=== PATIENT | female | born 1985 | race Caucasian/White ===

== ENCOUNTER 2020-03-18 06:00 | Inpatient (IN) | payer BC ==
[2020-03-18] MEDS ORDERED: METHYLERGONOVINE 0.2 MG/ML 1 ML AMP IM PRN (06:30)
[2020-03-18] MEDS ORDERED: TERBUTALINE 1 MG/ML VIAL SQ PRN (06:30)
[2020-03-18] MEDS ORDERED: OXYTOCIN 10 UNIT/ML 1 ML VIAL IM PRN (06:30)
[2020-03-18] MEDS ORDERED: LIDOCAINE 0.5% (PF) 5 MG/ML (50 ML SDV) SQ PRN (06:30)
[2020-03-18] MEDS ORDERED: PENICILLIN G POTASSIUM 5,000,000 UNIT in DEXTROSE 5% IN WATER 100 ML IVPB STA ×2 (06:30)
[2020-03-18] MEDS ORDERED: CARBOPROST TROMETHAMINE 250 MCG/ML 1 ML AMP IM PRN (06:30)
[2020-03-18] MEDS ORDERED: AMPICILLIN 2,000 MG in SODIUM CHLORIDE 0.9% 100 ML IVPB STA (06:39)
[2020-03-18] MEDS: LACTATED RINGERS 1,000 ML IV SCH ×2 (06:41→14:10)
[2020-03-18] MEDS: OXYTOCIN 30 UNITS/500 ML NS 30 UNIT in SALINE 1 500ML.BAG IV SCH ×2 (06:42→18:26)
[2020-03-18 06:48] LABS: Basophils % (A) 0 %; Eosinophils # (A) 0.1 k/uL (0-0.7); Eosinophils % (A) 0 %; HCT 33.6 % (34.0-46.0); HGB 11.2 gm/dL (11.4-16.0); Lymphocytes # (A) 2.2 k/uL (1.0-4.8); Lymphocytes % (A) 17 %; MCH 27.7 pg (25.0-35.0); MCHC 33.4 g/dL (31.0-37.0); MCV 82.9 fL (80.0-100.0); Mean Platelet Volume 7.7; Monocytes # (A) 0.7 k/uL (0-1.0); Monocytes % (A) 6 %; Neutrophils # (A) 9.4 k/uL (1.3-7.7); Neutrophils % (A) 75 %; Platelet Count 315 k/uL (150-450); RBC 4.05 m/uL (3.80-5.40); RDW 14.4 % (11.5-15.5); WBC 12.6 k/uL (3.8-10.6)
[2020-03-18 09:30] LABS: Basophils % (A) 0 %; Eosinophils % (A) 0 %; HCT 34.7 % (34.0-46.0); HGB 11.4 gm/dL (11.4-16.0); Lymphocytes # (A) 2.2 k/uL (1.0-4.8); Lymphocytes % (A) 17 %; MCH 27.4 pg (25.0-35.0); MCV 83.1 fL (80.0-100.0); Mean Platelet Volume 7.5; Monocytes # (A) 0.7 k/uL (0-1.0); Monocytes % (A) 6 %; Neutrophils # (A) 9.5 k/uL (1.3-7.7); Neutrophils % (A) 75 %; Platelet Count 325 k/uL (150-450); RBC 4.17 m/uL (3.80-5.40); RDW 14.4 % (11.5-15.5); WBC 12.6 k/uL (3.8-10.6)
[2020-03-18 09:38] LABS: ALT 7 U/L (4-34); AST 14 U/L (14-36); African American GFR (CKD) >90 (>60 ml/min/1.73 sqM); Blood Urea Nitrogen 7 mg/dL (7-17); LDH 362 U/L (313-618); Non-African American GFR(CKD) >90 (>60 ml/min/1.73 sqM); Uric Acid 3.4 mg/dL (3.7-7.4)
[2020-03-18 09:47] LABS: Appearance,Urine Cloudy (Clear); Bilirubin,Urine Negative (Negative); Blood,Urine Small (Negative); Calcium Oxalate Crystals,Urine Few /hpf; Color,Urine Yellow; Glucose,Urine (UA) Negative (Negative); Hyaline Casts,Urine 1 /lpf (0-2); Ketones,Urine 1+ (Negative); Leukocyte Esterase,Urine Trace (Negative); Mucus,Urine Many /hpf; Nitrite,Urine Negative (Negative); PH, Urine 6.5 (5.0-8.0); Protein,Urine 1+ (Negative); RBC,Urine 10 /hpf (0-5); Specific Gravity,Urine 1.033 (1.001-1.035); Squamous Epithelial Cell,Urine 8 /hpf (0-4); WBC,Urine 4 /hpf (0-5)
--- NOTE | 2020-03-18 10:10 | P.HPOB ---
History of Present Illness H&P Date: 03/18/20 Chief Complaint: IUP at 39 and one sevenths weeks this is a 35-year-old at 39 1/7 weeks, edc 03/24 based on first trimester ultrasound that presents to labor and delivery for elective induction of labor. Patient has been receiving routine care which has been essentially uncomplicated. Patient is a smoker and is urged to quit. Patient notes good movement denies contractions or loss of fluid this morning. On blood work she has a blood type of A+, rubella status immune, RPR nonreactive, B surface antigen negative, HIV negative, she did pass her one-hour gestational diabetes screen, group beta strep culture was noted to be positive on 02/25. patient did receive the flu shot and her T Dap vaccine during . Review of Systems Constitutional: Denies chills, Denies fatigue, Denies fever Ears, nose, mouth and throat: Denies headache Cardiovascular: Reports leg edema Respiratory: Denies dyspnea Gastrointestinal: Denies constipation, Denies diarrhea, Denies nausea, Denies vomiting Genitourinary: Reports Past Medical History Past Medical History: No Reported History History of Any Multi-Drug Resistant Organisms: None Reported Additional Past Surgical History / Comment(s): ectopic 2001, mass R breast non malignant 2011, R elbow surgery July 2019 Past Anesthesia/Blood Transfusion Reactions: No Reported Reaction Past Psychological History: Depression Smoking Status: Former smoker Past Alcohol Use History: None Reported Past Drug Use History: None Reported - Past Family History Mother Family Medical History: COPD, Hyperlipidemia, Hypertension, Liver Disease, Thyroid Disorder Additional Family Medical History / Comment(s): hepatitis C, thyroid CA, Stro kes, heart attack, hip replacements x 16 Medications and Allergies Home Medications Medication Instructions Recorded Confirmed Type Calcium Carbonate [Tums] 500 mg PO TID PRN 03/18/20 03/18/20 History Famotidine [Pepcid] 40 mg PO DAILY PRN 03/18/20 03/18/20 History valACYclovir HCL 1,000 mg PO DAILY 03/18/20 03/18/20 History Allergies Allergy/AdvReac Type Severity Reaction Status Date / Time No Known Allergies Allergy Verified 03/18/20 06:26 Exam Osteopathic Statement: *. No significant issues noted on an osteopathic structural exam other than those noted in the History and Physical/Consult. Vital Signs Temp Pulse Resp BP Pulse Ox 03/18/20 06:47 98.3 F 92 16 138/85 99 Intake and Output 03/17/20 03/18/20 03/18/20 22:59 06:59 14:59 Other: Weight 98.883 kg targeted physical exam is performed and state in general this a well-nourished well-developed female in no acute distress, breathing is noted to be nonlabored, heart has a regular rate and rhythm, abdomen is gravid and appropriate for gestational age, on cervical exam she is 2/50/-2 station amniotomy is performed and clear fluid was obtained. heart tones are be category 1 she is janice irregularly. Results Result Diagrams: 03/18/20 08:40 03/18/20 08:40 Abnormal Lab Results - Last 24 Hours (Table) 03/18/20 03/18/20 03/18/20 Range/Units 06:30 08:25 08:40 WBC 12.6 H 12.6 H (3.8-10.6) k/uL Hgb 11.2 L (11.4-16.0) gm/dL Hct 33.6 L (34.0-46.0) % Neutrophils # 9.4 H 9.5 H (1.3-7.7) k/uL Uric Acid (3.7-7.4) mg/dL Urine Appearance Cloudy H (Clear) Urine Protein 1+ H (Negative) Urine Ketones 1+ H (Negative) Urine Blood Small H (Negative) Ur Leukocyte Esterase Trace H (Negative) Urine RBC 10 H (0-5) /hpf Ur Squamous Epith Cells 8 H (0-4) /hpf Calcium Oxalate Crystal Few H (None) /hpf Urine Mucus Many H (None) /hpf 03/18/20 Range/Units 08:40 WBC (3.8-10.6) k/uL Hgb (11.4-16.0) gm/dL Hct (34.0-46.0) % Neutrophils # (1.3-7.7) k/uL Uric Acid 3.4 L (3.7-7.4) mg/dL Urine Appearance (Clear) Urine Protein (Negative) Urine Ketones (Negative) Urine Blood (Negative) Ur Leukocyte Esterase (Negative) Urine RBC (0-5) /hpf Ur Squamous Epith Cells (0-4) /hpf Calcium Oxalate Crystal (None) /hpf Urine Mucus (None) /hpf Assessment and Plan (1) Term Current Visit: Yes Status: Acute Code(s): Z34.90 - ENCNTR FOR SUPRVSN OF NORMAL , UNSP, UNSP TRIMESTER SNOMED Code(s): 70803366 (2) Positive GBS test Current Visit: Yes Status: Acute Code(s): B95.1 - STREPTOCOCCUS, GROUP B, CAUSING DISEASES CLASSD ELSR SNOMED Code(s): 631273065 (3) HSV (herpes simplex virus) anogenital infection Current Visit: Yes Status: Acute Code(s): A60.9 - ANOGENITAL HERPESVIRAL I NFECTION, UNSPECIFIED SNOMED Code(s): 448842310 (4) AMA (advanced maternal age) multigravida 35+ Current Visit: Yes Status: Acute Code(s): O09.529 - SUPERVISION OF ELDERLY MULTIGRAVIDA, UNSPECIFIED TRIMESTER SNOMED Code(s): 381905958 Plan: this 35-year-old 0-1 at 39 and one sevenths weeks is admitted to labor and delivery for scheduled induction of labor. Patient is started on Pitocin induction of labor per hospital protocol. Options for analgesia are discussed including Stadol and epidural. Patient declines. We'll monitor closely and anticipate spontaneous vaginal delivery.
[2020-03-18 10:30] LABS: Creatinine,Urine Random 242.7 mg/dL; Protein/Creatinine Ratio,Urine 0.144
[2020-03-18] MEDS ORDERED: PENICILLIN G POTASSIUM 2,500,000 UNIT in DEXTROSE 5% IN WATER 100 ML IVPB SCH ×2 (10:33)
[2020-03-18] MEDS: AMPICILLIN 1,000 MG in SODIUM CHLORIDE 0.9% 50 ML IVPB SCH ×3 (11:30→20:51)
[2020-03-18] MEDS ORDERED: BUTORPHANOL 1 MG/ML 1 ML VIAL IV PRN (14:00)
[2020-03-18] MEDS ORDERED: fentaNYL (PF) 50 MCG/ML 5 ML AMP ONE (14:20)
[2020-03-18] MEDS ORDERED: ROPIVACAINE 5MG/ML 20ML VIAL ONE (14:20)
[2020-03-18] MEDS ORDERED: SODIUM CHLORIDE 0.9% 100 ML BAG ONE (14:20)
[2020-03-18] MEDS ORDERED: ZOLPIDEM 5 MG TAB PO PRN (16:52)
[2020-03-18] MEDS ORDERED: diphenhydrAMINE 50 MG/ML 1 ML VIAL IVP PRN ×2 (16:52)
[2020-03-18] MEDS ORDERED: LANOLIN CREAM 5 GM TUBE TOPICAL PRN (16:52)
[2020-03-18] MEDS ORDERED: ACETAMINOPHEN TAB 325 MG TAB PO PRN (16:52)
[2020-03-18] MEDS ORDERED: diphenhydrAMINE 50 MG CAP PO PRN (16:52)
[2020-03-18] MEDS ORDERED: diphenhydrAMINE 25 MG CAP PO PRN (16:52)
[2020-03-18] MEDS ORDERED: BENZOCAINE/MENTHOL SPRAY 1 GM/SPRAY AEROSOL TOPICAL PRN (16:52)
[2020-03-18] MEDS ORDERED: HYDROCORTISONE 2.5% RECTAL CREAM 30 GM TUBE RECTAL PRN (16:52)
[2020-03-18] MEDS ORDERED: SIMETHICONE 80 MG CHEWABLE PO PRN (16:52)
[2020-03-18] MEDS ORDERED: HYDROcodone/APAP 5-325MG 1 EACH TAB PO PRN (16:52)
[2020-03-18] MEDS ORDERED: OXYTOCIN 30 UNITS/500 ML NS 30 UNIT in SALINE 1 500ML.BAG IV SCH (17:00)
--- NOTE | 2020-03-18 17:02 | P.PROBDLV ---
Vaginal Delivery Note - . Vaginal Delivery Note: This is a 35-year-old that presented to labor and delivery at 39 1/7 weeks for elective induction of labor. Patient was receiving routine care which has been essentially uncomplicated. Patient was admitted to labor and delivery and Pitocin induction of labor was begun per hospital protocol. Amniotomy was performed and clear fluid was obtained. Patient pressed to labor became uncomfortable and requested epidural placement. Epidural was placed by the anesthesia Department without difficulty. Unfortunately she only received relief of her discomfort on one side. Patient did progress to complete and began pushing and had a normal spontaneous vaginal delivery of a viable female infant at 1634, loose nuchal was delivered through. After two-minute delayed the umbilical cord was doubly clamped and cut and the infant was handed off to the maternal abdomen. The placenta was then delivered spontaneously intact with a three-vessel cord being noted. After delivery of the placenta the uterus was noted to be firm and below the umbilicus. A red rubber catheter was then used to drain the bladder of 100 mL of clear yellow urine. Inspection the patient's vaginal vault a periurethral laceration was noted and this was repaired with a [id number] suture of 4-0 chromic. <Viable female infant delivered at 1634, weight of 6 lbs. 15 oz. and Apgars of 9 and 9 at one and 5 minutes respectively>.
[2020-03-18] MEDS: SENNOSIDES-DOCUSATE SODIUM 1 EACH TAB PO SCH (20:50)
[2020-03-19] MEDS: IBUPROFEN 600 MG TAB PO PRN ×2 (05:14→15:42)
--- NOTE | 2020-03-19 08:06 | P.DS ---
Providers Date of admission: 03/18/20 06:00 Expected date of discharge: 03/19/20 Attending physician: Dulce Licea Primary care physician: Stated None - Discharge Diagnosis(es) (1) Term Current Visit: Yes Status: Acute (2) Positive GBS test Current Visit: Yes Status: Acute (3) HSV (herpes simplex virus) anogenital infection Current Visit: Yes Status: Acute (4) AMA (advanced maternal age) multigravida 35+ Current Visit: Yes Status: Acute (5) Status post normal vaginal delivery Current Visit: Yes Status: Acute Hospital Course: This is a 35-year-old 4 now para 2021 that presented to labor and delivery yesterday for elective induction of labor at 39 and one sevenths weeks. Patient had been receiving routine care which had been essentially uncomplicated. Patient was admitted to labor and delivery and Pitocin induction of labor was begun. Patient underwent amniotomy and clear fluid was obtained. Patient progressed through labor eventually becoming uncomfortable and requesting epidural placement. Epidural was placed without difficulty by the anesthesia department, unfortunately she was only able to receive relief of her discomfort on one side. Patient progressed to complete began pushing and had a normal spontaneous vaginal delivery of a viable female infant at 1634, weight of 6 lbs. 15 oz. and Apgars of 9 and 9 at one and 5 minutes respectively. Patient did sustain a periurethral laceration which was repaired with 4-0 chromic in a [id number] fashion. Patient's course is been uneventful. On this day #1 she is ambulatory and voiding without difficulty. She is tolerating a regular diet without nausea or vomiting. She states she would like discharge home at 24 hours if possible. Patient Condition at Discharge: Good Plan - Discharge Summary New Discharge Prescriptions: No Action valACYclovir HCL 1,000 mg PO DAILY Famotidine [Pepcid] 40 mg PO DAILY PRN PRN Reason: Heartburn Calcium Carbonate [Tums] 500 mg PO TID PRN PRN Reason: Heartburn Discharge Medication List Calcium Carbonate [Tums] 500 mg PO TID PRN 03/18/20 [History] Famotidine [Pepcid] 40 mg PO DAILY PRN 03/18/20 [History] valACYclovir HCL 1,000 mg PO DAILY 03/18/20 [History] Follow up Appointment(s)/Referral(s): Dulce Licea DO [Doctor of Osteopathic Medicine] - 4 Weeks Patient Instructions/Handouts: Vaginal Delivery (DC), Vaginal Delivery (GEN) Discharge Disposition: HOME SELF-CARE
[2020-03-19] MEDS: SENNOSIDES-DOCUSATE SODIUM 1 EACH TAB PO SCH (15:42)
[2020-03-19 16:12] VITALS: BP 149/81; PULSE 88; RESP 16; TEMP 98.2
== END 2020-03-19 17:21 | disposition home or self-care (01) | DRG 806 ==
LOC: 4FBP 06:00 → MERGE 06:00
PROVIDERS: ADMIT Obstetrics & Gynecology Obstetrics; ATTEND Obstetrics & Gynecology Obstetrics
PROC: 10907ZC Drainage of Amniotic Fluid, Therapeutic from Products of Conception, Via Natural or Artificial Opening (ICD-10-PCS; principal; 2020-03-18)
PROC: 3E0R3BZ Introduction of Anesthetic Agent into Spinal Canal, Percutaneous Approach (ICD-10-PCS; principal; 2020-03-18)
PROC: 0UQMXZZ Repair Vulva, External Approach (ICD-10-PCS; principal; 2020-03-18)
PROC: 00HU33Z Insertion of Infusion Device into Spinal Canal, Percutaneous Approach (ICD-10-PCS; principal; 2020-03-18)
PROC: 10E0XZZ Delivery of Products of Conception, External Approach (ICD-10-PCS; principal; 2020-03-18)
PROC: 3E033VJ Introduction of Other Hormone into Peripheral Vein, Percutaneous Approach (ICD-10-PCS; principal; 2020-03-18)
DX: O99.824 Streptococcus B carrier state complicating childbirth (principal); O98.32 Other infections with a predominantly sexual mode of transmission complicating childbirth; Z37.0 Single live birth; O71.82 Other specified trauma to perineum and vulva; A60.9 Anogenital herpesviral infection, unspecified; O99.334 Smoking (tobacco) complicating childbirth; O99.62 Diseases of the digestive system complicating childbirth; K21.9 Gastro-esophageal reflux disease without esophagitis; F17.200 Nicotine dependence, unspecified, uncomplicated; Z71.6 Tobacco abuse counseling; Z3A.39 39 weeks gestation of pregnancy; Z79.899 Other long term (current) drug therapy; Z87.39 Personal history of other diseases of the musculoskeletal system and connective tissue; Z86.59 Personal history of other mental and behavioral disorders; Z87.2 Personal history of diseases of the skin and subcutaneous tissue; Z98.890 Other specified postprocedural states; Z82.5 Family history of asthma and other chronic lower respiratory diseases; Z83.49 Family history of other endocrine, nutritional and metabolic diseases; Z82.49 Family history of ischemic heart disease and other diseases of the circulatory system; Z83.79 Family history of other diseases of the digestive system; Z82.3 Family history of stroke; Z80.8 Family history of malignant neoplasm of other organs or systems
CPT/HCPCS: 81001; 82565; 82570; 83615; 84156; 84450; 84460; 84520; 84550; 85025; 86850; 86900; 86901

== ENCOUNTER 2020-03-26 14:12 | Inpatient (IN) | payer BC ==
--- NOTE | 2020-03-26 14:37 | ED ---
General Adult HPI - General Chief complaint: Recheck/Abnormal Lab/Rx Stated complaint: Lab recheck post baby- Sent by Dr. Licea Time Seen by Provider: 03/26/20 14:21 Source: patient, RN notes reviewed Mode of arrival: ambulatory Limitations: no limitations - History of Present Illness Initial comments: Patient is a pleasant 35-year-old female presenting to the emergency department after being evaluated by her SPARE FIXER today. Patient states she has been having some headaches for last 4 days as well as some abdominal discomfort. Patient doesn't follow this short of breath when she lays flat. Patient also noticed some swelling of her hands and feet. Patient states she did have some mild amount of protein and borderline blood pressure went in the hospital. Patient did deliver just 9 days ago. No fevers. No visual changes. - Related Data Home Medications Medication Instructions Recorded Confirmed Calcium Carbonate [Tums] 500 mg PO TID PRN 03/18/20 03/18/20 Famotidine [Pepcid] 40 mg PO DAILY PRN 03/18/20 03/18/20 valACYclovir HCL 1,000 mg PO DAILY 03/18/20 03/18/20 Allergies Allergy/AdvReac Type Severity Reaction Status Date / Time No Known Allergies Allergy Verified 03/18/20 06:26 Review of Systems ROS Statement: Those systems with pertinent positive or pertinent negative responses have been documented in the HPI. ROS Other: All systems not noted in ROS Statement are negative. Constitutional: Denies: fever Eyes: Denies: eye pain, vision change ENT: Denies: ear pain Respiratory: Reports: as per HPI. Denies: cough Cardiovascular: Denies: chest pain Endocrine: Denies: fatigue Gastrointestinal: Reports: abdominal pain Genitourinary: Denies: dysuria Musculoskeletal: Denies: back pain Skin: Denies: rash Neurological: Reports: headache. Denies: weakness, confusion Past Medical History Past Medical History: No Reported History History of Any Multi-Drug Resistant Organisms: None Reported Additional Past Surgical History / Comment(s): ectopic 2001, mass R breast non malignant 2011, R elbow surgery July 2019 Past Anesthesia/Blood Transfusion Reactions: No Reported Reaction Past Psychological History: Depression Smoking Status: Former smoker Past Alcohol Use History: None Reported Past Drug Use History: None Reported - Past Family History Mother Family Medical History: COPD, Hyperlipidemia, Hypertension, Liver Disease, Th yroid Disorder Additional Family Medical History / Comment(s): hepatitis C, thyroid CA, Strokes, heart attack, hip replacements x 16 General Exam Limitations: no limitations General appearance: alert, in no apparent distress Head exam: Present: atraumatic, normocephalic Eye exam: Present: normal appearance, PERRL ENT exam: Present: normal exam Neck exam: Present: normal inspection. Absent: tenderness, meningismus Respiratory exam: Present: normal lung sounds bilaterally Cardiovascular Exam: Present: regular rate, normal rhythm Expanded Peripheral pulses: 2+: Radial (R), Radial (L), Posterior Tibialis (R), Posterior Tibialis (L) GI/Abdominal exam: Present: soft, tenderness (Mild tenderness right upper quadrant) Extremities exam: Present: pedal edema (Trace bilateral). Absent: calf tenderness Neurological exam: Present: alert Psychiatric exam: Present: normal affect, normal mood Skin exam: Present: normal color Course Vital Signs 03/26/20 03/26/20 03/26/20 14:13 14:34 15:27 Temperature 97.9 F Pulse Rate 65 63 Respiratory 18 18 Rate Blood Pressure 180/103 175/93 156/96 O2 Sat by Pulse 99 100 Oximetry EKG Findings - EKG Comments: EKG Findings:: Sinus bradycardia 57. DC 122. QRS 92. QT 422. QTC 410. Normal axis. Incomplete right bundle branch block. No acute ST change. Medical Decision Making - Medical Decision Making Patient reevaluated and updated. Case discussed with Dr. Garcia who would like to admit her patient for magnesium and blood pressure control. She states she will come in shortly for further orders and to evaluate patient. She does request total of 3 mg of magnesium at this time. - Lab Data Result diagrams: 03/26/20 14:33 03/26/20 14:33 Lab Results 03/26/20 03/26/20 03/26/20 Range/Units 14:33 14:33 14:33 WBC 7.2 (3.8-10.6) k/uL RBC 4.09 (3.80-5.40) m/uL Hgb 11.0 L (11.4-16.0) gm/dL Hct 34.0 (34.0-46.0) % MCV 83.1 (80.0-100.0) fL MCH 27.0 (25.0-35.0) pg MCHC 32.5 (31.0-37.0) g/dL RDW 14.3 (11.5-15.5) % Plt Count 390 (150-450) k/uL MPV 7.0 Neutrophils % 63 % Lymphocytes % 26 % Monocytes % 6 % Eosinophils % 3 % Basophils % 0 % Neutrophils # 4.5 (1.3-7.7) k/uL Lymphocytes # 1.9 (1.0-4.8) k/uL Monocytes # 0.4 (0-1.0) k/uL Eosinophils # 0.2 (0-0.7) k/uL Basophils # 0.0 (0-0.2) k/uL PT 9.7 (9.0-12.0) sec INR 0.9 (<1.2) APTT 21.4 L (22.0-30.0) sec Sodium (137-145) mmol/L Potassium (3.5-5.1) mmol/L Chloride (98-107) mmol/L Carbon Dioxide (22-30) mmol/L Anion Gap mmol/L BUN (7-17) mg/dL Creatinine (0.52-1.04) mg/dL Est GFR (CKD-EPI)AfAm (>60 ml/min/1.73 sqM) Est GFR (CKD-EPI)NonAf (>60 ml/min/1.73 sqM) Glucose (74-99) mg/dL Uric Acid (3.7-7.4) mg/dL Calcium (8.4-10.2) mg/dL Magnesium (1.6-2.3) mg/dL Total Bilirubin (0.2-1.3) mg/dL AST (14-36) U/L ALT (4-34) U/L Alkaline Phosphatase (38-126) U/L Lactate Dehydrogenase (313-618) U/L Total Protein (6.3-8.2) g/dL Albumin (3.5-5.0) g/dL Amylase (30-110) U/L Lipase (23-300) U/L Urine Color Light Yellow Urine Appearance Clear (Clear) Urine pH 6.0 (5.0-8.0) Ur Specific [place] 1.010 (1.001-1.035) Urine Protein Trace H (Negative) Urine Glucose (UA) Negative (Negative) Urine Ketones Negative (Negative) Urine Blood Moderate H (Negative) Urine Nitrite Negative (Negative) Urine Bilirubin Negative (Negative) Urine Urobilinogen <2.0 (<2.0) mg/dL Ur Leukocyte Esterase Negative (Negative) Urine RBC 5 (0-5) /hpf Urine WBC 2 (0-5) /hpf Urine Bacteria Rare H (None) /hpf Urine Mucus Rare H (None) /hpf 03/26/20 Range/Units 14:33 WBC (3.8-10.6) k/uL RBC (3.80-5.40) m/uL Hgb (11.4-16.0) gm/dL Hct (34.0-46.0) % MCV (80.0-100.0) fL MCH (25.0-35.0) pg MCHC (31.0-37.0) g/dL RDW (11.5-15.5) % Plt Count (150-450) k/uL MPV Neutrophils % % Lymphocytes % % Monocytes % % Eosinophils % % Basophils % % Neutrophils # (1.3-7.7) k/uL Lymphocytes # (1.0-4.8) k/uL Monocytes # (0-1.0) k/uL Eosinophils # (0-0.7) k/uL Basophils # (0-0.2) k/uL PT (9.0-12.0) sec INR (<1.2) APTT (22.0-30.0) sec Sodium 137 (137-145) mmol/L Potassium 3.8 (3.5-5.1) mmol/L Chloride 109 H (98-107) mmol/L Carbon Dioxide 22 (22-30) mmol/L Anion Gap 6 mmol/L BUN 15 (7-17) mg/dL Creatinine 0.72 (0.52-1.04) mg/dL Est GFR (CKD-EPI)AfAm >90 (>60 ml/min/1.73 sqM) Est GFR (CKD-EPI)NonAf >90 (>60 ml/min/1.73 sqM) Glucose 92 (74-99) mg/dL Uric Acid 4.3 (3.7-7.4) mg/dL Calcium 9.1 (8.4-10.2) mg/dL Magnesium 1.8 (1.6-2.3) mg/dL Total Bilirubin 0.4 (0.2-1.3) mg/dL AST 19 (14-36) U/L ALT 12 (4-34) U/L Alkaline Phosphatase 90 (38-126) U/L Lactate Dehydrogenase 500 (313-618) U/L Total Protein 6.3 (6.3-8.2) g/dL Albumin 3.3 L (3.5-5.0) g/dL Amylase <30 L (30-110) U/L Lipase 200 (23-300) U/L Urine Color Urine Appearance (Clear) Urine pH (5.0-8.0) Ur Specific [place] (1.001-1.035) Urine Protein (Negative) Urine Glucose (UA) (Negative) Urine Ketones (Negative) Urine Blood (Negative) Urine Nitrite (Negative) Urine Bilirubin (Negative) Urine Urobilinogen (<2.0) mg/dL Ur Leukocyte Esterase (Negative) Urine RBC (0-5) /hpf Urine WBC (0-5) /hpf Urine Bacteria (None) /hpf Urine Mucus (None) /hpf Disposition Clinical Impression: Hypertension Disposition: ADMITTED IP TO THIS HOSP Is patient prescribed a controlled substance at d/c from ED?: No Referrals: Kobe Santana MD [Primary Care Provider] - 1-2 days Decision Time: 15:59
[2020-03-26 14:44] LABS: Basophils % (A) 0 %; Eosinophils # (A) 0.2 k/uL (0-0.7); Eosinophils % (A) 3 %; Lymphocytes # (A) 1.9 k/uL (1.0-4.8); Lymphocytes % (A) 26 %; MCHC 32.5 g/dL (31.0-37.0); MCV 83.1 fL (80.0-100.0); Monocytes # (A) 0.4 k/uL (0-1.0); Monocytes % (A) 6 %; Neutrophils # (A) 4.5 k/uL (1.3-7.7); Neutrophils % (A) 63 %; Platelet Count 390 k/uL (150-450); RBC 4.09 m/uL (3.80-5.40); RDW 14.3 % (11.5-15.5); WBC 7.2 k/uL (3.8-10.6)
[2020-03-26] MEDS ORDERED: MAGNESIUM SULFATE-D5W PMX 1 GM in DEXTROSE/WATER 1 100ML.BAG IVPB ONE (14:45)
[2020-03-26] MEDS ORDERED: LABETALOL 5 MG/ML VIAL MDV IVP STA (14:45)
[2020-03-26 14:56] LABS: ALT 12 U/L (4-34); AST 19 U/L (14-36); African American GFR (CKD) >90 (>60 ml/min/1.73 sqM); Albumin 3.3 g/dL (3.5-5.0); Alkaline Phosphatase 90 U/L (38-126); Amylase <30 U/L (30-110); Anion Gap 6 mmol/L; Blood Urea Nitrogen 15 mg/dL (7-17); Calcium 9.1 mg/dL (8.4-10.2); Carbon Dioxide 22 mmol/L (22-30); Chloride 109 mmol/L (98-107); Glucose 92 mg/dL (74-99); LDH 500 U/L (313-618); Lipase 200 U/L (23-300); Magnesium 1.8 mg/dL (1.6-2.3); Non-African American GFR(CKD) >90 (>60 ml/min/1.73 sqM); Potassium 3.8 mmol/L (3.5-5.1); Sodium 137 mmol/L (137-145); Total Bilirubin 0.4 mg/dL (0.2-1.3); Total Protein 6.3 g/dL (6.3-8.2); Uric Acid 4.3 mg/dL (3.7-7.4)
[2020-03-26 15:19] LABS: INR 0.9 (<1.2); Prothrombin Time 9.7 sec (9.0-12.0)
[2020-03-26 15:20] LABS: Partial Thromboplastin Time 21.4 sec (22.0-30.0)
[2020-03-26 15:23] LABS: Appearance,Urine Clear (Clear); Bacteria,Urine Rare /hpf; Bilirubin,Urine Negative (Negative); Blood,Urine Moderate (Negative); Color,Urine Light Yellow; Glucose,Urine (UA) Negative (Negative); Ketones,Urine Negative (Negative); Leukocyte Esterase,Urine Negative (Negative); Mucus,Urine Rare /hpf; Nitrite,Urine Negative (Negative); Protein,Urine Trace (Negative); RBC,Urine 5 /hpf (0-5); Urobilinogen,Urine <2.0 mg/dL (<2.0); WBC,Urine 2 /hpf (0-5)
--- NOTE | 2020-03-26 15:45 | US ---
EXAMINATION TYPE: US gallbladder DATE OF EXAM: 03/26/2020 COMPARISON: NONE CLINICAL HISTORY: pain. EXAM MEASUREMENTS: Liver Length: 21.7 cm Gallbladder Wall: 0.2 cm CBD: 0.4 cm Right Kidney: 12.7 x 4.8 x 5.7 cm Pancreas: Obscured by bowel gas Liver: Enlarged, heterogeneous. Echogenic area visualized measuring 2.6 x 1.8 x 2.1 cm Gallbladder: wnl Evidence for sonographic Rodarte's sign: No CBD: wnl Right Kidney: No hydronephrosis or masses seen IMPRESSION: 1. Hepatomegaly. 2. Echogenic focus within the right lobe liver could be compatible with a hemangioma.
[2020-03-26] MEDS ORDERED: NALOXONE 0.4 MG/ML 1 ML VIAL IV PRN (16:00)
[2020-03-26] MEDS ORDERED: hydrALAZINE HCL 20 MG/ML 1 ML VIAL IVP PRN (16:01)
[2020-03-26] MEDS: SODIUM CHLORIDE 0.9% 1,000 ML IV SCH (17:19)
[2020-03-26] MEDS: MAGNESIUM SULFATE-D5W PMX 1 GM in DEXTROSE/WATER 1 100ML.BAG IVPB SCH ×2 (17:20→21:09)
[2020-03-26] MEDS ORDERED: ACETAMINOPHEN TAB 500 MG TAB PO PRN (17:50)
[2020-03-26] MEDS ORDERED: MAGNESIUM SULFATE-WATER PMX 4 GM in WATER FOR INJECTION 1 100ML.BAG IVPB ONE (17:51)
[2020-03-26] MEDS ORDERED: CALCIUM GLUCONATE 1 GM/10 ML VIAL IV PRN (17:55)
[2020-03-26] MEDS ORDERED: MAGNESIUM SULFATE-D5W PMX 1 GM in DEXTROSE/WATER 1 100ML.BAG IVPB SCH (18:00)
[2020-03-26] MEDS: LABETALOL 200 MG TAB PO SCH (18:09)
[2020-03-26] MEDS: MAGNESIUM SULFATE-WATER PMX 20 GM in WATER FOR INJECTION 1 500ML.BAG IV SCH (18:29)
[2020-03-26] MEDS: IBUPROFEN 600 MG TAB PO SCH (19:29)
[2020-03-26] MEDS: LACTATED RINGERS 1,000 ML IV SCH (21:06)
[2020-03-27] MEDS: IBUPROFEN 600 MG TAB PO SCH ×3 (01:06→20:00)
[2020-03-27] MEDS: MAGNESIUM SULFATE-WATER PMX 20 GM in WATER FOR INJECTION 1 500ML.BAG IV SCH ×2 (04:40→15:15)
[2020-03-27 07:08] LABS: Basophils % (A) 1 %; Eosinophils # (A) 0.1 k/uL (0-0.7); Eosinophils % (A) 2 %; HCT 32.2 % (34.0-46.0); HGB 10.3 gm/dL (11.4-16.0); Lymphocytes # (A) 2.4 k/uL (1.0-4.8); Lymphocytes % (A) 31 %; MCH 26.7 pg (25.0-35.0); MCHC 31.8 g/dL (31.0-37.0); MCV 83.9 fL (80.0-100.0); Mean Platelet Volume 7.1; Monocytes # (A) 0.5 k/uL (0-1.0); Monocytes % (A) 7 %; Neutrophils # (A) 4.4 k/uL (1.3-7.7); Neutrophils % (A) 58 %; Platelet Count 394 k/uL (150-450); RBC 3.84 m/uL (3.80-5.40); RDW 14.3 % (11.5-15.5); WBC 7.6 k/uL (3.8-10.6)
[2020-03-27 07:20] LABS: ALT 12 U/L (4-34); AST 15 U/L (14-36); African American GFR (CKD) >90 (>60 ml/min/1.73 sqM); Blood Urea Nitrogen 11 mg/dL (7-17); Non-African American GFR(CKD) >90 (>60 ml/min/1.73 sqM); Uric Acid 4.7 mg/dL (3.7-7.4)
[2020-03-27] MEDS: LABETALOL 200 MG TAB PO SCH ×2 (08:11→20:55)
--- NOTE | 2020-03-27 08:23 | P.PN ---
Subjective Progress Note Date: 03/27/20 Principal diagnosis: preeclampsia Patient did well overnight. Blood pressures remained 130s 140s over 90s. Patient is doing well on the magnesium. Labs are reviewed this morning and normal. She states she is tired this morning as she was unable to sleep last night. She denies headache this morning. She denies nausea or vomiting. Objective - Vital Signs Vital signs: Vital Signs Temp 97.8 F 03/27/20 07:00 Pulse 68 03/27/20 07:00 Resp 15 03/27/20 07:00 BP 163/84 03/27/20 07:00 Pulse Ox 98 03/26/20 20:00 Intake & Output 03/26/20 03/27/20 03/27/20 18:59 06:59 18:59 Intake Total 500 Output Total 1750 Balance -1250 Weight 99.79 kg Intake: Intake, IV Titration 500 Amount Magnesium Sulfate-Water 500 Pmx 20 gm In Water For Injection 1 500ml.bag @ 2 GM/HR 50 mls/hr IV .Q10H RAUL Rx#:[id number] Output: Urine 1750 - Constitutional General appearance: Present: cooperative, no acute distress - Respiratory Respiratory: bilateral: CTA - Cardiovascular Rhythm: regular - Psychiatric Psychiatric: Present: A&O x's 3, appropriate affect, intact judgment & insight - Labs CBC & Chem 7: 03/27/20 06:23 03/27/20 06:23 Labs: Abnormal Lab Results - Last 24 Hours (Table) 03/26/20 03/26/20 03/26/20 Range/Units 14:33 14:33 14:33 Hgb 11.0 L (11.4-16.0) gm/dL Hct (34.0-46.0) % APTT 21.4 L (22.0-30.0) sec Chloride (98-107) mmol/L Albumin (3.5-5.0) g/dL Amylase (30-110) U/L Urine Protein Trace H (Negative) Urine Blood Moderate H (Negative) Urine Bacteria Rare H (None) /hpf Urine Mucus Rare H (None) /hpf 03/26/20 03/27/20 Range/Units 14:33 06:23 Hgb 10.3 L (11.4-16.0) gm/dL Hct 32.2 L (34.0-46.0) % APTT (22.0-30.0) sec Chloride 109 H (98-107) mmol/L Albumin 3.3 L (3.5-5.0) g/dL Amylase <30 L (30-110) U/L Urine Protein (Negative) Urine Blood (Negative) Urine Bacteria (None) /hpf Urine Mucus (None) /hpf Assessment and Plan (1) Pre-eclampsia, Current Visit: Yes Status: Acute Code(s): O14.95 - UNSPECIFIED PRE- ECLAMPSIA, COMPLICATING THE PUERPERIUM SNOMED Code(s): 035569809 Plan: This 35-year-old status post normal spontaneous vaginal delivery on March presented yesterday with elevated blood pressures to the emergency department. Pre-Heraclio labs are noted to be negative. Patient noted headache and epigastric pain. Patient was admitted and magnesium was begun. Labs this morning continue to be normal. Blood pressures over the night were 130s to 140s over 90s. Patient is currently on 200 mg of labetalol twice daily. Patient is overall doing well on the magnesium. We'll plan magnesium for 24 hours and follow blood pressures today. May consider increasing labetalol dose to 300 mg by mouth twice daily per her blood pressures today. Patient states understanding of the plan will monitor closely.
[2020-03-27] MEDS: SODIUM CHLORIDE 0.9% 1,000 ML IV SCH (20:39)
[2020-03-27] MEDS: LACTATED RINGERS 1,000 ML IV SCH (20:39)
[2020-03-28 06:48] LABS: ALT 12 U/L (4-34); AST 14 U/L (14-36); African American GFR (CKD) >90 (>60 ml/min/1.73 sqM); Blood Urea Nitrogen 16 mg/dL (7-17); Non-African American GFR(CKD) 82 (>60 ml/min/1.73 sqM); Uric Acid 5.1 mg/dL (3.7-7.4)
--- NOTE | 2020-03-28 07:17 | P.HPOB ---
History of Present Illness H&P Date: 03/26/20 Chief Complaint: PPD 10, preeclampsia This is a 35-year-old G1 now P1 status post normal spontaneous vaginal delivery on 03/18. Patient states a partially 4 days ago she started experiencing headache with soreness of breath at night. Patient states symptoms increased therefore she called the office for recommendations. Patient was advised to present to the emergency department where blood pressure was noted to be significantly be elevated 180/102. Preeclampsia labs work did and noted be normal urinalysis revealing trace protein Patient notes headache, epigastric pain, shortness of breath at night mostly with laying down. Patient states she had an EKG in the emergency department which she believes is negative. Review of Systems Constitutional: Reports as per HPI, Reports fatigue, Denies chills, Denies fever Ears, nose, mouth and throat: Reports headache Cardiovascular: Reports leg edema Respiratory: Reports dyspnea, Denies congestion, Denies cough Gastrointestinal: Denies constipation, Denies diarrhea, Denies nausea, Denies vomiting Genitourinary: Reports as per HPI Past Medical History Past Medical History: No Reported History History of Any Multi-Drug Resistant Organisms: None Reported Additional Past Surgical History / Comment(s): ectopic 2001, mass R breast non malignant 2011, R elbow surgery July 2019 Past Anesthesia/Blood Transfusion Reactions: No Reported Reaction Past Psychological History: Depression Smoking Status: Former smoker Past Alcohol Use History: None Reported Past Drug Use History: None Reported - Past Family History Mother Family Medical History: COPD, Hyperlipidemia, Hypertension, Liver Disease, Thyroid Disorder Additional Family Medical History / Comment(s): hepatitis C, thyroid CA, Strokes, heart attack, hip replacements x 16 Medications and Allergies Home Medications Medication Instructions Recorded Confirmed Type Ibuprofen [Motrin Ib] 800 mg PO Q8H PRN 03/26/20 03/26/20 History Naproxen Sodium [Aleve] 220 mg PO Q12H PRN 03/26/20 03/26/20 History Allergies Allergy/AdvReac Type Severity Reaction Status Date / Time No Known Allergies Allergy Verified 03/26/20 16:03 Exam Osteopathic Statement: *. No significant issues noted on an osteopathic structural exam other than those noted in the History and Physical/Consult. Vital Signs Temp Pulse Resp BP Pulse Ox 03/26/20 17:24 68 17 157/82 100 03/26/20 15:27 63 18 156/96 100 03/26/20 14:34 175/93 03/26/20 14:13 97.9 F 65 18 180/103 99 Intake and Output 03/26/20 03/26/20 03/26/20 06:59 14:59 22:59 Other: Weight 99.79 kg Targeted physical exam is performed in this date in general this a well- nourished well-developed non female in no acute distress, breathing is noted to be nonlabored, heart has a regular rate and rhythm, abdomen is , vaginal exam is deferred. Results Result Diagrams: 03/26/20 14:33 03/26/20 14:33 Abnormal Lab Results - Last 24 Hours (Table) 03/26/20 03/26/20 03/26/20 Range/Units 14:33 14:33 14:33 Hgb 11.0 L (11.4-16.0) gm/dL APTT 21.4 L (22.0-30.0) sec Chloride (98-107) mmol/L Albumin (3.5-5.0) g/dL Amylase (30-110) U/L Urine Protein Trace H (Negative) Urine Blood Moderate H (Negative) Urine Bacteria Rare H (None) /hpf Urine Mucus Rare H (None) /hpf 03/26/20 Range/Units 14:33 Hgb (11.4-16.0) gm/dL APTT (22.0-30.0) sec Chloride 109 H (98-107) mmol/L Albumin 3.3 L (3.5-5.0) g/dL Amylase <30 L (30-110) U/L Urine Protein (Negative) Urine Blood (Negative) Urine Bacteria (None) /hpf Urine Mucus (None) /hpf Assessment and Plan (1) Pre-eclampsia, Current Visit: Yes Status: Acute Code(s): O14.95 - UNSPECIFIED PRE- ECLAMPSIA, COMPLICATING THE PUERPERIUM SNOMED Code(s): 112511289 Plan: This 35-year-old status post dermal spontaneous vaginal delivery on 03/18 presents with elevated blood pressures, shortness of breath, epigastric pain. Patient is admitted for preeclampsia. 4 g magnesium bolus is initiated, along with preeclampsia protocol. Plan is discussed with the patient, will plan on continuing magnesium infusion for 24 hours. Will consider oral labetalol for blood pressure control. Repeat preeclampsia labs in the morning.
--- NOTE | 2020-03-28 07:44 | P.DS ---
Providers Date of admission: 03/27/20 08:08 Expected date of discharge: 03/28/20 Attending physician: Dulce Licea Primary care physician: Max Bullock - Discharge Diagnosis(es) (1) Pre-eclampsia, Current Visit: Yes Status: Acute Hospital Course: This 35-year-old status post normal spontaneous vaginal delivery on December 16 presented to the ER with elevated blood pressures shortness of breath and headache. Patient was admitted and magnesium infusion was begun. After 24 hours magnesium was discontinued. Throughout all of this patient's preeclampsia labs were noted to be negative. Patient is feeling well this morning after magnesium was discontinued last night around 1730. Patient has been up to the bathroom voiding without difficulty. She denies headache or discomfort. Blood pressures remain well controlled on oral labetalol. Patient Condition at Discharge: Good Plan - Discharge Summary New Discharge Prescriptions: No Action Naproxen Sodium [Aleve] 220 mg PO Q12H PRN PRN Reason: Pain Ibuprofen [Motrin Ib] 800 mg PO Q8H PRN PRN Reason: Pain Discharge Medication List Ibuprofen [Motrin Ib] 800 mg PO Q8H PRN 03/26/20 [History] Naproxen Sodium [Aleve] 220 mg PO Q12H PRN 03/26/20 [History] Follow up Appointment(s)/Referral(s): Kobe Santana MD [Primary Care Provider] - 1-2 days Dulce Licea DO [Doctor of Osteopathic Medicine] - 1 Week Patient Instructions/Handouts: Preeclampsia and Eclampsia After Delivery (GEN) Discharge Disposition: HOME SELF-CARE
[2020-03-28] MEDS: LABETALOL 200 MG TAB PO SCH (08:10)
[2020-03-28] MEDS: IBUPROFEN 600 MG TAB PO SCH ×2 (09:42→16:18)
[2020-03-28] MEDS ORDERED: LABETALOL 100 MG TAB PO STA (09:56)
[2020-03-28] MEDS: LABETALOL 100 MG TAB PO SCH ×2 (15:32→21:14)
[2020-03-28] MEDS: SODIUM CHLORIDE 0.9% 1,000 ML IV SCH (16:18)
[2020-03-28] MEDS ORDERED: LABETALOL 100 MG TAB PO SCH (21:00)
[2020-03-29] MEDS: LABETALOL 100 MG TAB PO SCH (06:53)
[2020-03-29] MEDS ORDERED: NIFEdipine XL 90 MG TAB.ER.24 PO SCH (09:00)
[2020-03-29] MEDS: IBUPROFEN 600 MG TAB PO SCH ×2 (09:07→12:18)
[2020-03-29 09:30] VITALS: PULSE 65; RESP 17; TEMP 98.4
--- NOTE | 2020-03-29 10:46 | P.PN ---
Subjective Progress Note Date: 03/29/20 Principal diagnosis: preeclampsia Discharge apparently held secondary to ongoing hypertension status post magnesium sulfate. Her blood pressures have remained elevated in the 160s over 90s throughout the night despite labetalol 300 mg 3 times a day. Patient is very angry and wishes to be discharged home. She denies headaches, visual changes, abdominal pain, increase in swelling. She also says she will not tell us if she is feeling poorly "because we will make her stay longer " Objective - Vital Signs Vital signs: Vital Signs Temp 98.4 F 03/29/20 08:00 Pulse 65 03/29/20 09:00 Resp 17 03/29/20 09:00 BP 168/91 03/29/20 09:00 Pulse Ox 99 03/29/20 08:00 - Constitutional General appearance: Present: average body habitus - Respiratory Respiratory: bilateral: CTA - Gastrointestinal General gastrointestinal: Present: soft. Absent: tenderness - Neurologic Neurologic Comment(s): DTRs 1+ bilateral - Musculoskeletal Musculoskeletal Comment(s): 2+ bilateral lower extremity edema - Labs CBC & Chem 7: 03/27/20 06:23 03/28/20 06:25 Assessment and Plan (1) Pre-eclampsia, Narrative/Plan: 35-year-old day #11 status post normal spontaneous vaginal delivery who was readmitted for preeclampsia. Patient's discharged yesterday was held secondary to ongoing hypertension. Blood pressures have continued to range in the 160s over 90s despite labetalol 300 mg 3 times a day. I will add nifedipine XL 90 mg this morning. I have recommended that the patient not yet be discharged until we see some improvement in her blood pressures. The patient is very unhappy and is strongly wanting discharge home. She agrees to stay for several more hours to see if her blood pressures decreased with the addition of the nifedipine. She denies any symptoms but reports she will not tell us of any symptoms because "we will make her stay". Operatory data has all been within normal limits. Current Visit: Yes Status: Acute Code(s): O14.95 - UNSPECIFIED PRE-ECLAMPSIA , COMPLICATING THE PUERPERIUM SNOMED Code(s): 011899755
[2020-03-29 12:19] VITALS: BP 160/88
--- NOTE | 2020-03-29 12:36 | P.PN ---
Progress Note - Text Progress Note Date: 03/29/20 Please see addendum to previous discharge summary. Patient is to be discharged home on labetalol 300 mg by mouth 3 times a day and Procardia XL 90 mg by mouth daily.
== END 2020-03-29 13:40 | disposition home or self-care (01) | DRG 776 ==
LOC: EC 14:12 → 4FBP 16:10 → OBSVTOIN 03-27 08:08
PROVIDERS: ADMIT Obstetrics & Gynecology Obstetrics; ATTEND Obstetrics & Gynecology Obstetrics
DX: O14.95 Unspecified pre-eclampsia, complicating the puerperium (principal); F32.9 Major depressive disorder, single episode, unspecified; Z20.822 Contact with and (suspected) exposure to COVID-19; Z87.891 Personal history of nicotine dependence; Z82.49 Family history of ischemic heart disease and other diseases of the circulatory system; Z82.5 Family history of asthma and other chronic lower respiratory diseases; Z80.8 Family history of malignant neoplasm of other organs or systems; Z82.3 Family history of stroke
CPT/HCPCS: 36415; 76705; 80053; 81001; 82150; 82565; 83615; 83690; 83735; 84450; 84460; 84520; 84550; 85025; 85610; 85730; 87635; 93005; 96365; 96366; 96375; 99284

== ENCOUNTER → 2023-11-24 | Outpatient (CLI) | payer BC ==
--- NOTE | 2023-11-24 07:50 | MM ---
Reason for Exam: Clinical finding. Patient History: 2011, Lumpectomy on the Right side. Risk Values: Kathi 5 year model risk: 0.4%. NCI Lifetime model risk: 6.7%. Tissue Density: There are scattered areas of fibroglandular density. Findings: Analyzed By CAD. Focal asymmetry upper outer aspect of the left breast approximately 13.0 cm the nipple measuring up to 9 mm. No finding to correlate with patient's right-sided pain or discharge. Overall Assessment: Incomplete: need additional imaging evaluation, BI-RAD 0 Management: Diagnostic Breast Ultrasound of both breasts. Results were given to the patient verbally at the time of exam. Patient should continue monthly self-breast exams. A clinical breast exam by your physician is recommended on an annual basis. This exam should not preclude additional follow-up of suspicious palpable abnormalities. Note on Kathi scores and lifetime risk: 1. A Kathi score greater than 3% is considered moderate risk. If this is the case, consider specialist referral to assess eligibility for a risk reducing agent. 2. If overall lifetime risk for the development of breast cancer is 20% or higher, the patient may qualify for future screening with alternating mammogram and breast MRI. [facility], , 11/24/2023 7:46 AM. Electronically signed and approved by: Luke Hickey DO
--- NOTE | 2023-11-24 08:14 | USB ---
Reason for Exam: Clinical finding. Patient History: 2011, Lumpectomy on the Right side. Risk Values: Kathi 5 year model risk: 0.4%. NCI Lifetime model risk: 6.7%. Technique: Method: Targeted. Findings: The upper outer quadrant of the left breast, the lower section of the breast of the right breast, the axilla of both breasts and the retroareolar of both breasts were scanned. Technique utilized:US breast limited BILAT Image; Ultrasound imaging of: All 4 quadrants, the retroareolar region and axilla. No evidence for organizing fluid collection or mass. Dilated ducts in the right breast. No evidence for intraductal mass. No finding to correlate patient's right breast pain. Left breast normal appearing lymph nodes in the area of concern 13 cm from nipple in the upper outer quadrant. Overall Assessment: Benign, BI-RAD 2 Management: Screening Mammogram of both breasts in 1 year. A clinical breast exam by your physician is recommended on an annual basis and results should be correlated with mammographic findings. This exam should not preclude additional follow-up of suspicious palpable abnormalities. Results were given to the patient verbally at the time of exam. [facility], , 11/24/2023 8:11 AM. Electronically signed and approved by: Luke Hickey DO
== END | disposition home or self-care (01) ==
LOC: RADMAMWWP 07:06
PROVIDERS: ATTEND Obstetrics & Gynecology Obstetrics
DX: R92.323 Mammographic fibroglandular density, bilateral breasts (principal); N64.52 Nipple discharge; N64.4 Mastodynia
CPT/HCPCS: 77062; 77066